=== PATIENT | female | born 1975 | race African-American/Black ===

== ENCOUNTER 2018-11-19 18:33 | Emergency (ER) | payer OTHER ==
[~2018-11-19] VITALS: Ht 167.6 cm; Wt 117.0 kg
[~2018-11-19 18:33] MED LIST: ACETAMINOPHEN-1 EAC1 PO; CIPROFLOXACIN500 M1 PO; CIPROFLOXACIN500 M3 PO; CLEOCIN HCL300 MG PO; CLEOCIN HCL75 MG PO; DOXYCYCLINE 10100 MG PO; ENDOCET 5-3251 EACH PO; FIORICET 50-321 EACH PO; FLAGYL500 MG; FLAGYL500 MG PO; FLOMAX PO; HYDROXYZINE HCL50 MG PO; IBUPROFEN 600600 M1 PO; MACROBID 100 M100 M2 PO; NAPROSYN500 MG PO; NOHOMEMEDICATIONS; NORCO 5-325 TA1 EACH PO; PERCOCET 5-3251 EACH PO; PROTONIX40 M2 PO; RANITIDINE 150150 M1 PO; TAMSULOSIN HCL0.4 M1 PO; TAMSULOSIN HCL0.4 MG PO; ZOFRAN ODT4 MG PO
[2018-11-19 19:16] LABS: ABSOLUTE NEUTROPHILS 4.2 thou/uL (1.4-8.2); BASOPHILS 0.5 % (0.0-2.0); EOSINOPHILS 1.9 % (0.0-3.0); HEMATOCRIT 39.4 % (37.0-47.0); HEMOGLOBIN 13.2 gm/dL (12.0-15.0); LYMPHOCYTES 41.1 % (24.0-44.0); MCH 29.8 pg (26.0-34.0); MCHC 33.5 g/dL (28.0-37.0); MCV 89.1 fL (80.0-100.0); PLATELET COUNT 281 thou/uL (150-400); POLYS 50.5 % (36.0-66.0); RBC 4.42 mil/uL (4.20-5.00); RDW 13.8 % (10.5-14.5); WBC 8.4 thou/uL (4.0-11.0)
[2018-11-19 19:25] LABS: CALCIUM 8.7 mg/dL (8.5-10.1); CREATININE 0.8 mg/dL (0.6-1.0); POTASSIUM 3.5 mmol/L (3.5-5.1)
[2018-11-19] MEDS ORDERED: BUTALB-APAP-CA1 EACH PO (20:29)
[2018-11-19 20:40] VITALS: BP 134/50
== END 2018-11-19 20:40 | disposition home or self-care (01) ==
LOC: ER 18:33
PROVIDERS: Student in an Organized Health Care Education/Training Program
DX: R51 Headache (principal); R11.2 Nausea with vomiting, unspecified